=== PATIENT | female | born 1985 | race Asian ===

== ENCOUNTER 2020-07-11 09:07 | Inpatient (IN) | payer OTHER ==
[~2020-07-11] VITALS: Ht 157.5 cm; Wt 86.6 kg
[2020-07-11] MEDS ORDERED: NALOXONE HCL 0.4 MG/ML 1ML VIAL IM PRN (10:00)
[2020-07-11] MEDS ORDERED: LIDOCAINE HCL 1% 20ML VIAL (Pyxis) INJ INFIL SCH (10:00)
[2020-07-11] MEDS ORDERED: METHYLERGONOVINE MALEATE 0.2 MG/ML IM PRN (10:00)
[2020-07-11] MEDS ORDERED: BUTORPHANOL TARTRATE 2 MG/ML VIAL IV PRN (10:00)
[2020-07-11] MEDS ORDERED: MISOPROSTOL 200MCG TABLET PO NR (10:15)
[2020-07-11 10:27] LABS: BASOPHILS % 0.8 % (0.0-2.0); EOSINOPHILS % 1.6 % (0.0-5.0); HEMATOCRIT. 35.2 % (36.0-48.0); HEMOGLOBIN. 11.8 g/dL (12.0-16.0); LYMPHOCYTES % 20.4 % (20.0-50.0); MEAN CORPUSCULAR HEMOGLOBIN 27.5 pg (28.0-32.0); MEAN CORPUSCULAR VOLUME 81.7 fL (81.0-99.0); MONOCYTES % 6.1 % (2.0-8.0); NEUTROPHILS % 71.1 % (40.0-76.0); RED CELL DISTRIBUTION WIDTH 16.1 % (11.6-14.6)
[2020-07-11] MEDS: LACTATED RINGERS 1,000 ML IV SCH ×3 (10:29→22:58)
[2020-07-11 10:39] LABS: INR 0.9; PARTIAL THROMBOPLASTIN TIME 25.4 sec (23.4-31.0)
[2020-07-11 10:51] LABS: CLARITY URINE CLEAR (CLEAR); COLOR URINE YELLOW (YELLOW); KETONES URINE NEGATIVE (NEGATIVE); LEUKOCYTE ESTERASE URINE 3+ (NEGATIVE); NITRITE URINE NEGATIVE (NEGATIVE); OCCULT BLOOD URINE NEGATIVE (NEGATIVE); PROTEIN URINE NEGATIVE (NEGATIVE); SPECIFIC GRAVITY URINE 1.006 (1.005-1.030); UROBILINOGEN URINE 0.2 E.U./dL (0.2-1.0)
[2020-07-11] MEDS ORDERED: INFLUENZA VACCINE 05/PF 0.5 ML VIAL IM ONE (11:00)
[2020-07-11 11:24] LABS: *BARBITURATES SCREEN URINE NEGATIVE (NEGATIVE)
[2020-07-11 11:25] LABS: *BENZODIAZEPINES SCREEN URINE NEGATIVE (NEGATIVE); *COCAINE SCREEN URINE NEGATIVE (NEGATIVE); OPIATES URINE SCREEN NEGATIVE (NEGATIVE)
[2020-07-11 11:26] LABS: *AMPHETAMINES SCREEN URINE NEGATIVE (NEGATIVE); CANNABINOID URINE SCREEN NEGATIVE (NEGATIVE)
[2020-07-11 11:27] LABS: PHENCYCLIDINE URINE SCREEN NEGATIVE (NEGATIVE)
[2020-07-11 11:37] LABS: PLATELET 238 x1000/uL (130-400)
[2020-07-11 11:40] LABS: METHADONE URINE SCREEN NEGATIVE (NEGATIVE)
[2020-07-11 12:53] LABS: HEPATITIS B SURFACE ANTIGEN NEGATIVE
[2020-07-11] MEDS ORDERED: MISOPROSTOL 100MCG TABLET VG SCH ×3 (14:00→23:45)
[2020-07-11] MEDS ORDERED: ROPIVACAINE HCL/PF EPIDURAL 200 ML EP SCH (15:15)
[2020-07-11] MEDS ORDERED: PREN-55 PO (17:36)
[2020-07-11] MEDS ORDERED: PENICILLIN G POTASSIUM 5 MMU in DEXT 5% WATER 100 ML IV SCH (18:00)
[2020-07-11] MEDS ORDERED: MISOPROSTOL 100MCG TABLET PO SCH ×2 (18:50→19:30)
[2020-07-11] MEDS ORDERED: MISOPROSTOL 100MCG TABLET ONE (19:23)
[2020-07-11] MEDS ORDERED: PENICILLIN G POTASSIUM 2.5 MMU in DEXTROSE 5% WATER 50 ML IV SCH (22:00)
[2020-07-12] MEDS ORDERED: PENICILLIN G POTASSIUM 5 MMU in DEXT 5% WATER 100 ML IV SCH (04:00)
[2020-07-12] MEDS: DEXT 5%/LR + PITOCIN 20UNITS/L 1,000 ML IV SCH ×2 (05:40→16:22)
[2020-07-12] MEDS: LACTATED RINGERS 1,000 ML IV SCH ×2 (05:44→13:31)
[2020-07-12] MEDS: PENICILLIN G POTASSIUM 2.5 MMU in DEXTROSE 5% WATER 50 ML IV SCH ×2 (07:49→11:44)
[2020-07-12] MEDS ORDERED: ACETAMINOPHEN 500MG TABLET PO NR (13:09)
[2020-07-12] MEDS ORDERED: AMPICILLIN 2,000 MG in SODIUM CHLORIDE 0.9% 100 ML IV SCH (13:30)
[2020-07-12] MEDS ORDERED: GENTAMICIN 120MG PREMIX 100 ML IV SCH (14:00)
[2020-07-12] MEDS ORDERED: LIDOCAINE HCL 2%/EPINEPHRINE 1:100,000 20 ML VIAL INFIL ONE (14:00)
[2020-07-12] MEDS ORDERED: LIDOCAINE HCL 1% 20ML VIAL (Pyxis) INJ INFIL NR (14:30)
[2020-07-12] MEDS ORDERED: MINERAL OIL 30ML BOTTLE TOP PRN (16:00)
[2020-07-12] MEDS ORDERED: LANOLIN OINT 7GM TUBE TOP PRN (16:00)
[2020-07-12] MEDS ORDERED: IBUPROFEN 400MG TABLET PO PRN (16:00)
[2020-07-12] MEDS ORDERED: OXYCODONE HCL/ACETAMINOPHEN 5/325MG TABLET PO PRN ×2 (16:00)
[2020-07-12] MEDS ORDERED: HEMORRHOIDAL SUPP PR PRN (16:00)
[2020-07-12] MEDS ORDERED: DEXT 5%/LR + PITOCIN 20UNITS/L 1,000 ML IV SCH (16:00)
[2020-07-12] MEDS ORDERED: METHYLERGONOVINE MALEATE 0.2 MG/ML IM PRN ×2 (16:00)
[2020-07-12] MEDS ORDERED: BISACODYL 10MG SUPP PR PRN (16:00)
[2020-07-12] MEDS ORDERED: BENZOCAINE/LANOLIN/ALOE VERA SPRAY TOP PRN (16:00)
[2020-07-12] MEDS ORDERED: DIPHENHYDRAMINE 25MG CAPSULE PO PRN (16:00)
[2020-07-12] MEDS ORDERED: RHO(D) IMMUNE GLOBULIN 300 MCG/SYR IM PRN (16:00)
[2020-07-12 17:00] VITALS: BP 104/57
[2020-07-12] MEDS ORDERED: SIMETHICONE 80MG TABLET CHEW PO SCH (17:00)
[2020-07-12] MEDS ORDERED: METHYLERGONOVINE MALEATE 0.2MG TABLET PO SCH (17:00)
[2020-07-12] MEDS ORDERED: MAGNESIUM/ALUMINUM HYDROXIDE/SIMETHICONE 30ML UDC PO SCH (17:00)
[2020-07-12] MEDS: IBUPROFEN 800MG TABLET PO PRN (17:32)
[2020-07-12 18:00] VITALS: BP 110/56
[2020-07-12] MEDS ORDERED: DOCUSATE SODIUM 100MG CAPSULE PO SCH (21:00)
[2020-07-12 21:55] VITALS: BP 104/63
[2020-07-13 06:00] VITALS: BP 103/66
[2020-07-13 06:44] LABS: BASOPHILS % 0.2 % (0.0-2.0); EOSINOPHILS % 0.4 % (0.0-5.0); HEMATOCRIT. 29.3 % (36.0-48.0); HEMOGLOBIN. 9.9 g/dL (12.0-16.0); LYMPHOCYTES % 11.4 % (20.0-50.0); MEAN CORPUSCULAR HEMOGLOBIN 27.6 pg (28.0-32.0); MEAN CORPUSCULAR VOLUME 81.5 fL (81.0-99.0); MONOCYTES % 4.1 % (2.0-8.0); NEUTROPHILS % 83.9 % (40.0-76.0); PLATELET 142 x1000/uL (130-400); RED CELL DISTRIBUTION WIDTH 16.8 % (11.6-14.6)
[2020-07-13] MEDS ORDERED: FERROUS SULFATE 325MG TABLET PO SCH (07:30)
[2020-07-13 08:00] VITALS: BP 101/67
[2020-07-13] MEDS: IBUPROFEN 800MG TABLET PO PRN ×2 (08:06→14:18)
[2020-07-13] MEDS ORDERED: PRENATAL VIT/FE FUMARATE/FA TABLET PO SCH (09:00)
[2020-07-13 14:00] VITALS: BP 99/62
== END 2020-07-13 15:45 | disposition home or self-care (01) | DRG 807 ==
LOC: OBSVTOIN 09:07 → 8 EST LDRP 09:07 → 8EST 07-12 17:00
PROVIDERS: ADMIT Obstetrics & Gynecology; ATTEND Obstetrics & Gynecology
PROC: 0KQM0ZZ Repair Perineum Muscle, Open Approach (ICD-10-PCS; principal; 2020-07-12)
PROC: 10E0XZZ Delivery of Products of Conception, External Approach (ICD-10-PCS; 2020-07-12)
PROC: 3E0R3BZ Introduction of Anesthetic Agent into Spinal Canal, Percutaneous Approach (ICD-10-PCS; 2020-07-12)
PROC: 00HU33Z Insertion of Infusion Device into Spinal Canal, Percutaneous Approach (ICD-10-PCS; 2020-07-12)
DX: O69.81X0 Labor and delivery complicated by cord around neck, without compression, not applicable or unspecified (principal); Z37.0 Single live birth; Z3A.40 40 weeks gestation of pregnancy; O70.1 Second degree perineal laceration during delivery
CPT/HCPCS: 36415; 80305; 81003; 85025; 86592; 86703; 86762; 86850; 86900; 87077; 87340; 90686; J0290; J1580; J2540; J2590; J2795; J3490; J7050; J7060; J7120